=== PATIENT | female | born 1950 | race Caucasian/White ===

== ENCOUNTER 2019-01-19 04:11 | Emergency (ER) | payer MEDICARE ==
[2019-01-19] MEDS ORDERED: cefTRIAXone\\ROCEPHIN 2 GM VIAL ONE (05:15)
[2019-01-19] MEDS ORDERED: Sodium Chloride 0.9% 100 ML ONE (05:15)
[2019-01-19] MEDS ORDERED: Acetaminophen 500 MG TAB ONE (05:26)
[2019-01-19 05:28] LABS: #Lymphocytes 0.5 thou/uL (1.20-3.40); #Monocytes 0.3 thou/uL (0.11-0.59); #Neutrophils 4.9 thou/uL (1.40-6.50); %Basophils 0.7 % (0.0-1.0); %Eosinophils 0.7 % (0.0-10.0); %Lymphocytes 8.2 % (21.0-51.0); %Monocytes 4.9 % (0.0-10.0); %Neutrophils 85.5 % (42.0-75.0); Hemoglobin 14.5 g/dL (12.0-16.0); Mean Corpuscular HGB CONC 33.2 g/dL (32.0-36.0); Mean Corpuscular Hemoglobin 30.4 pg (27.0-31.0); Mean Corpuscular Volume 91.5 fL (78.0-98.0); Platelet Count 170 thou/uL (130-400); Red Blood Cell (RBC) Count 4.79 mill/uL (4.20-5.40); White Blood Cell (WBC) Count 5.7 thou/uL (4.8-10.8)
[2019-01-19] MEDS ORDERED: diphenhydrAMINE 50 MG/ML VIAL ONE (05:50)
[2019-01-19] MEDS ORDERED: methylPREDNISolone Sod Succ/PF 125 MG/2 ML VIAL ONE (05:50)
[2019-01-19 05:52] LABS: ALT (SGPT) 17 U/L (8-55); AST (SGOT) 19 U/L (5-34); Albumin 4.6 g/dL (3.4-4.8); Alkaline Phosphatase 69 U/L (40-150); Anion Gap 14 mmol/L (10-20); BUN (Urea Nitrogen) 11 mg/dL (9.8-20.1); Bilirubin, Total 1.1 mg/dL (0.2-1.2); Calc. Creatinine Clearance 0 mL/min (70-130); Calcium 9.8 mg/dL (7.8-10.44); Carbon Dioxide 26 mmol/L (23-31); Chloride 103 mmol/L (98-107); Estimated GFR-MDRD 66; Glucose 124 mg/dL (80-115); Lipase 28 U/L (8-78); Magnesium 2.1 mg/dL (1.6-2.6); Potassium 3.6 mmol/L (3.5-5.1); Protein, Total 7.6 g/dL (6.0-8.3); Sodium 139 mmol/L (136-145)
[2019-01-19 06:19] LABS: Bilirubin Negative (Negative); Blood, Urine Moderate (Negative); Clarity CLEAR (Clear); Glucose, Urine (Dipstick) Negative (Negative); Leukocyte Negative (Negative); Nitrite Negative (Negative); Protein, Urine (Dipstick) Negative (Neg-Trace); Specific Gravity, Urine 1.004 (1.002-1.036); Urobilinogen 0.2 mg/dL (0.2-1.0); pH, Urine 7.5 (5.0-9.0)
[2019-01-19 06:22] LABS: Bacteria/HPF None Seen HPF (None Seen); Hyaline Casts/LPF 0-3 HYALINE CAST LPF (0-3 Hyaline); Squamous Epithelial None Seen HPF (0-3); WBC/HPF 0-3 HPF (0-3)
--- NOTE | 2019-01-19 06:35 | RAD ---
CHEST ONE VIEW: INDICATIONS: Cough. COMPARISON: 10/04/2016 FINDINGS: Chronic lung changes are stable. Heart size is at the upper limits of normal. No acute osseous abno rmality is noted. IMPRESSION: Stable chronic lung changes. No definite acute abnormality. POS: [facility]
--- NOTE | 2019-01-19 07:50 | CT ---
CT ABDOMEN AND PELVIS WITHOUT IV CONTRAST: INDICATIONS: History of foul-smelling urine and bilateral flank pain with a history of a hysterectomy, a cholecyst ectomy, an ERCP, and an appendectomy. The patient is having one day of fever, cough, and bodyaches. COMPARISON: CT abdomen dated 09/04/2004. FINDINGS: The lung bases are clear. There is fatty infiltration of the liver. The gallbladder is surgically absent. The spleen is at the upper limits of normal, measuring 12.9 cm. There is a small diverticula involvi ng the second stage of the duodenum. The pancreas and adrenal glands are unremarkable. There has been interval development of a 1.8 cm staghorn calculus within the right renal pelvis. No el hydronephrosis is evident. There are at least four separate nonobstructing calculi within the mid to inferior pole of the right kidney. The one seen within the right mid pole measures 3 mm, and the two additional, within the lower pole, measure between 2 and 3 mm. A small, 1 to 2 mm, nonobstru cting calculus within the inferior pole left kidney. There is moderate distention of the bladder. There is no evidence of bowel obstruction. The appendix is surgically absent. No free fluid is evid ent. The uterus is surgically absent. No acute osseous abnormality is evident. There is diffuse osteopenia. IMPRESSION: 1. Interval development of a large right staghorn calculus within the right renal pelvis. There is bilateral nephrolithiasis. No el hydronephrosis is grossly evident. 2. Moderate distention of the bladder is nonspecific. 3. Fatty liver. 4. Hiatal hernia. 5. Other chronic findings as above. POS: [facility]
--- NOTE | 2019-01-19 08:52 | CT ---
CT ANGIOGRAM THORAX WITH IV CONTRAST AND 3D RECONSTRUCTIONS: 01/19/2019 HISTORY: Fever, cough, and bodyaches for one day. Dysuria. COMPARISON: None available. FINDINGS: There is dense contrast within the SVC, which results in artifact through the right upper lobe pulmon natali arteries, but no definitive filling defect is seen within the pulmonary arteries to suggest a pul monary embolus. Vascular calcifications are seen in the region of the aortic arch and involving the coronary arteries . The thoracic aorta is normal in caliber without evidence of an aortic dissection. There is no evidence of lymphadenopathy. A small hiatal hernia is present. There is dependent atelectasis bilaterally and greater at the lung bases. No pulmonary nodule, mass, or pleural effusion is seen. Post cholecystectomy changes are noted. There is partial visualization of a duodenal diverticulum, m edial to the second portion of the duodenum, better seen on noncontrast CT abdomen, also obtained on this date. There are areas of diminished attenuation within the liver, as well as areas of more normal attenuati on. Findings are likely related to geographic areas of fatty infiltration of the liver. IMPRESSION: 1. No CT evidence of a pulmonary embolus. 2. Fatty infiltration of the liver. 3. Post cholecystectomy changes. POS: [facility]
[2019-01-19] MEDS ORDERED: ISOVUE-370 76%-LOCM 1 ML ONE (10:39)
== END 2019-01-19 09:55 | disposition home or self-care (01) ==
LOC: ERS 04:11
DX: J18.9 Pneumonia, unspecified organism (principal); E86.0 Dehydration; K58.9 Irritable bowel syndrome, unspecified; M19.90 Unspecified osteoarthritis, unspecified site; E78.00 Pure hypercholesterolemia, unspecified
CPT/HCPCS: 36415; 71045; 71275; 74176; 80053; 81003; 81015; 83605; 83690; 83735; 85025; 87040; 87086; 87804; 93005; 96361; 96365; 96375; J0696; J1200; J2930; J7050; Q9966

== ENCOUNTER 2019-03-16 00:21 | Outpatient (CLI) | payer MEDICARE ==
[2019-03-16 17:57] LABS: Hemoglobin 13.3 g/dL (12.0-16.0); Mean Corpuscular Hemoglobin 30.6 pg (27.0-31.0); Mean Corpuscular Volume 90.1 fL (78.0-98.0); Mean Platelet Volume 9.6 fL (7.4-10.4); Platelet Count 176 thou/uL (130-400); RBC Distribution Width 12.3 % (11.5-14.5); Red Blood Cell (RBC) Count 4.35 mill/uL (4.20-5.40)
[2019-03-16 18:19] LABS: Anion Gap 12 mmol/L (10-20); BUN (Urea Nitrogen) 16 mg/dL (9.8-20.1); Calc. Creatinine Clearance 0 mL/min (70-130); Calcium 9.6 mg/dL (7.8-10.44); Carbon Dioxide 27 mmol/L (23-31); Chloride 104 mmol/L (98-107); Estimated GFR-MDRD 67; Glucose 92 mg/dL (80-115); Potassium 3.9 mmol/L (3.5-5.1); Sodium 139 mmol/L (136-145)
== END 2019-03-16 00:22 | disposition home or self-care (01) ==
LOC: LABBT 00:21
PROVIDERS: ATTEND Urology
DX: Z01.812 Encounter for preprocedural laboratory examination (principal); N20.0 Calculus of kidney; R31.29 Other microscopic hematuria; R39.15 Urgency of urination; R35.1 Nocturia
CPT/HCPCS: 80048; 81001; 85027; 87086

== ENCOUNTER 2019-03-24 08:52 | Day surgery (SDC) | payer MEDICARE ==
--- NOTE | 2019-03-24 10:31 | RAD ---
XR Abdomen 1 View/KUB History: [Preop cystogram] Comparison: CT abdomen and pelvis January 19, 2019 Findings: Large calculus interpolar right kidney similar to the comparison CT examination measuring o amadeo 2 cm in size. No abnormal calcifications projecting of the left renal shadow. Right upper quadrant surgical clips. Moderate stool burden. Impression: Large interpolar right renal calculus.
[2019-03-24] MEDS ORDERED: Fentanyl 100 MCG/2 ML VIAL ONE ×2 (11:30→11:31)
[2019-03-24] MEDS ORDERED: Ioversol 68 % 50 ML VIAL ONE (11:31)
[2019-03-24] MEDS ORDERED: Furosemide 20 MG/2 ML VIAL ONE (12:35)
[2019-03-24] MEDS ORDERED: Ondansetron PF 4 MG/2 ML Vial ONE (14:49)
[2019-03-24] MEDS ORDERED: Metoclopramide HCl 10 MG/2 ML VIAL ONE (14:49)
[2019-03-24] MEDS ORDERED: PROPOFOL 200 MG/20 ML VIAL ONE (14:49)
[2019-03-24] MEDS ORDERED: Dexamethasone 20 MG/5 ML VIAL ONE (14:49)
[2019-03-24] MEDS ORDERED: diphenhydrAMINE 50 MG/ML VIAL ONE (14:49)
[2019-03-24] MEDS ORDERED: Lidocaine 1% PF 5 ML VIAL ONE (14:49)
--- NOTE | 2019-03-24 21:29 | OP ---
DATE OF PROCEDURE: 03/24/2019 PREOPERATIVE DIAGNOSIS: Right large renal pelvic stone. POSTOPERATIVE DIAGNOSIS: Right large renal pelvic stone. PROCEDURES PERFORMED: Cystoscopy, right retrograde pyelogram, and insertion of right ureteral stent 6 x 28, as well as right extracorporeal shockwave lithotripsy. ANESTHESIA: General with laryngeal mask airway. FINDINGS: Adequate placement of a right stent that coiled around the large renal pelvic, adequate fragmentation of the large renal pelvic stone with persistent fragments remaining. SPECIMENS: None. COMPLICATIONS: None. DRAINS REMAINING: Internal 6 x 28 double-J. BLOOD LOSS: No blood loss. INDICATIONS FOR PROCEDURE: The patient is a 69-year-old female, who is followed in the office for intermittent right-sided pain and ultimately ended up with a large renal pelvic stone that we discussed multiple options for treatment, but I decided to start with the least invasive possible to clear her with this one procedure, but likely require multiple. DESCRIPTION OF PROCEDURE: The patient was brought into the room by Anesthesia, laid on the table in supine position. After receiving general anesthetic, the legs were placed in lithotomy position and perineum was prepped and draped in sterile fashion. Using a 21-Malay cystoscope and 30-degree lens, the urethra was traversed and the bladder was inspected. Retrograde pyelogram was performed; measurements were taken for a 6 x 28 double-J stent. The wire was advanced all the way into the renal pelvis. The Pollack was removed and then the 6 x 28 double-J was placed over the wire with a good coil visualized around the large renal pelvic stone in the renal pelvis and a good coil was visualized in the bladder via cystoscopy. Effuse was noted from it, the scope was broken apart, bladder drained and then removed in its entirety. The patient was returned to supine position. At this time, she was positioned such that the lithotriptor could identify the stone in multiple planes and then a total of 2500 shocks at a maximum power level of 4 /6 to 5/6 at a maximum rate of 60 per minute were then delivered. Good fragmentation was noted and this was started from medial to lateral. Given the large stone burden, there was still obviously stone fragments noted at the end the procedure. The patient tolerated the procedure well, was then awakened and transferred to PACU in stable condition. Job ID: [id number] [facility]
== END 2019-03-24 15:34 | disposition home or self-care (01) ==
LOC: SDC 08:52
PROVIDERS: ATTEND Urology
PROC: BT1DZZZ Fluoroscopy of Right Kidney, Ureter and Bladder (ICD-10-PCS; principal; 2019-03-24)
PROC: 0T768DZ Dilation of Right Ureter with Intraluminal Device, Via Natural or Artificial Opening Endoscopic (ICD-10-PCS; 2019-03-24)
PROC: 0TC68ZZ Extirpation of Matter from Right Ureter, Via Natural or Artificial Opening Endoscopic (ICD-10-PCS; 2019-03-24)
DX: N20.0 Calculus of kidney (principal); E78.5 Hyperlipidemia, unspecified; K21.9 Gastro-esophageal reflux disease without esophagitis; K58.9 Irritable bowel syndrome, unspecified; Z88.1 Allergy status to other antibiotic agents; Z88.8 Allergy status to other drugs, medicaments and biological substances; Z91.011 Allergy to milk products; Z91.041 Radiographic dye allergy status
CPT/HCPCS: 50590; 52332; 74018; C1758; C1769; J0690; J1940; J3010; Q9967

== ENCOUNTER 2019-04-15 10:25 | Outpatient (CLI) | payer MEDICARE ==
--- NOTE | 2019-04-15 12:42 | RAD ---
ABDOMEN ONE VIEW: HISTORY: Calculus of kidney. COMPARISON: 03/24/2019 FINDINGS: Right ureteral stent in place. Multiple right renal calculi fragments are noted. IMPRESSION: Multiple right renal calculi fragments are noted. Continued short-term followup. POS: OFF
== END 2019-04-15 10:26 | disposition home or self-care (01) ==
LOC: RAD 10:25
PROVIDERS: ATTEND Urology
DX: N20.0 Calculus of kidney (principal)
CPT/HCPCS: 74018; 87086

== ENCOUNTER 2019-05-13 15:00 | Outpatient (CLI) | payer MEDICARE ==
[2019-05-13 16:24] LABS: Hemoglobin 13.8 g/dL (12.0-16.0); Mean Corpuscular HGB CONC 33.7 g/dL (32.0-36.0); Mean Corpuscular Hemoglobin 30.3 pg (27.0-31.0); Mean Corpuscular Volume 90.1 fL (78.0-98.0); Mean Platelet Volume 9.6 fL (7.4-10.4); Platelet Count 168 thou/uL (130-400); RBC Distribution Width 12.2 % (11.5-14.5); Red Blood Cell (RBC) Count 4.56 mill/uL (4.20-5.40); White Blood Cell (WBC) Count 5.8 thou/uL (4.8-10.8)
[2019-05-13 16:25] LABS: Bilirubin Negative (Negative); Blood, Urine Small (Negative); Clarity CLEAR (Clear); Glucose, Urine (Dipstick) Negative (Negative); Leukocyte Small (Negative); Nitrite Negative (Negative); Protein, Urine (Dipstick) Negative (Neg-Trace); Specific Gravity, Urine 1.007 (1.002-1.036); Urobilinogen 0.2 mg/dL (0.2-1.0); pH, Urine 6.5 (5.0-9.0)
[2019-05-13 16:27] LABS: Bacteria/HPF None Seen HPF (None Seen); Hyaline Casts/LPF 0-3 HYALINE CAST LPF (0-3 Hyaline); Pathc Cast-AUWi Flag 0.27 (0-2.49); Squamous Epithelial 0-3 HPF (0-3); WBC/HPF 0-3 HPF (0-3)
[2019-05-13 16:30] LABS: INR-International Normal Ratio 1.1; PTT 33.4 SEC (22.9-36.1); Prothrombin Time 13.9 SEC (12.0-14.7)
[2019-05-13 16:43] LABS: Anion Gap 14 mmol/L (10-20); BUN (Urea Nitrogen) 15 mg/dL (9.8-20.1); Calc. Creatinine Clearance 0 mL/min (70-130); Carbon Dioxide 27 mmol/L (23-31); Chloride 103 mmol/L (98-107); Estimated GFR-MDRD 68; Glucose 87 mg/dL (80-115); Sodium 140 mmol/L (136-145)
== END 2019-05-13 15:01 | disposition home or self-care (01) ==
LOC: LABBT 15:00
PROVIDERS: ATTEND Urology
DX: Z01.818 Encounter for other preprocedural examination (principal); N20.0 Calculus of kidney
CPT/HCPCS: 80048; 81001; 85027; 85610; 85730; 87086; 93005; 93010

== ENCOUNTER 2019-05-21 08:48 | Day surgery (SDC) | payer MEDICARE ==
[2019-05-13 15:26] VITALS: BMI 35.6
[2019-05-21] MEDS ORDERED: cefTRIAXone\\ROCEPHIN 1 GM VIAL ONE (12:48)
[2019-05-21] MEDS ORDERED: Sodium Chloride 0.9% 100 ML ONE (12:50)
[2019-05-21] MEDS ORDERED: HYDROmorphone 2 MG/ML VIAL ONE (13:03)
[2019-05-21] MEDS ORDERED: Fentanyl 100 MCG/2 ML VIAL ONE (13:03)
[2019-05-21] MEDS ORDERED: Phenazopyridine HCl 97.5 MG TABLET ONE (15:28)
[2019-05-21] MEDS ORDERED: Promethazine HCl 25 MG/ML VIAL ONE (16:40)
[2019-05-21] MEDS ORDERED: Acetaminophen 500 MG TAB ONE (18:05)
--- NOTE | 2019-05-21 20:59 | OP ---
DATE OF PROCEDURE: 05/21/2019 SERVICE: Urology. PREOPERATIVE DIAGNOSIS: Right renal stone. POSTOPERATIVE DIAGNOSIS: Right renal stone. PROCEDURES PERFORMED: Right ureteroscopy, laser lithotripsy, basket extraction of stones, and replacement of 6 x 26 double-J stent. INDICATION FOR PROCEDURE: Mrs. Wright is a 69-year-old white female, who previously had shockwave lithotripsy with Dr. Dixon. Unfortunately, all of the stone fragments did not break and she has persistent stone. I had recommended ureteroscopy with laser lithotripsy to try and clear out remaining stone with all risks and benefits discussed and she has agreed to proceed forward. DESCRIPTION OF PROCEDURE: After identification of armband and verification of consent, the patient was brought back to the operating room, where she underwent general anesthesia with endotracheal intubation. She was then placed in dorsal lithotomy position and prepped and draped in usual sterile fashion. After appropriate time-out, a lubricated 22-Montserratian rigid cystoscope was introduced per urethra into the bladder and attention turned to the right ureteral orifice which had a stent emanating from it. The stent was grasped with flexible graspers and brought to the level of the urethral meatus. A 0.035 Sensor wire was advanced through the stent up to the level of renal pelvis. The stent was then removed and discarded. A dual-lumen catheter was advanced over the Sensor wire up to the level of the proximal ureter. An Amplatz Super Stiff wire was then placed through the second lumen up to the level of renal pelvis. The dual-lumen was then removed and discarded. The Sensor wire was affixed to the drapes as a safety wire. A 13/15-Montserratian ureteral access sheath was then advanced with ease over the Super Stiff wire up to the level of the proximal ureter. The inner cannula and the Super Stiff wire were then removed leaving the outer sheath and Sensor wire in place as a safety wire. A disposable flexible digital ureteroscope was then brought in through the ureteral access sheath into the renal pelvis. Pyeloscopy demonstrated that there were still stone fragments with very poor fragmentation of the original stone. A 365 micron laser fiber was then used to break up the stone into small fragments and a 1.9-Montserratian ZeroTip Nitinol basket used to bring up all fragments that were over 1-2 mm in size. There was a significant amount of dust debris that was left over. These were too small to grasp with the basket. The 365 micron laser fiber was then used to come back in and pulverize these fragments until they were literally powdered. There was almost no fragments over a millimeter in size upon completion, satisfied that the slurry should pass without any significant problems. The ureteroscope was withdrawn and pull-back ureteroscopy was employed in the ureter and there was one additional stone found within the ureter, which was basketed and removed. Remainder of the pull-back ureteroscopy was negative. A 6 x 26 double-J stent was then advanced over the Sensor wire back into the bladder and under fluoroscopic guidance got into position. The wire was removed leaving a partial curl in the kidney and a good curl in the bladder. Reinspection with the cystoscope back in the bladder showed good positioning of the stent. The bladder was emptied and cystoscope removed. The patient then awakened, taken to PACU for recovery in stable condition. COMPLICATIONS: None. ESTIMATED BLOOD LOSS: Minimal. RETAINED TUBES AND DRAINS: A 6 x 26 double-J stent on the right. SPECIMEN: Stone for stone analysis. DISPOSITION: The patient will be discharged home and follow up with me in approximately 1 week for cysto stent removal. Job ID: [id number]
== END 2019-05-21 19:00 | disposition home or self-care (01) ==
LOC: SDC 08:48
PROVIDERS: ATTEND Urology
PROC: 0TF38ZZ Fragmentation in Right Kidney Pelvis, Via Natural or Artificial Opening Endoscopic (ICD-10-PCS; principal; 2019-05-21)
PROC: 0T768DZ Dilation of Right Ureter with Intraluminal Device, Via Natural or Artificial Opening Endoscopic (ICD-10-PCS; 2019-05-21)
DX: N20.0 Calculus of kidney (principal); E78.5 Hyperlipidemia, unspecified; K21.9 Gastro-esophageal reflux disease without esophagitis; K58.9 Irritable bowel syndrome, unspecified; Z79.899 Other long term (current) drug therapy; Z88.8 Allergy status to other drugs, medicaments and biological substances; Z91.011 Allergy to milk products; Z91.040 Latex allergy status; Z98.890 Other specified postprocedural states
CPT/HCPCS: 76000; 82365; 88300; C1758; C1769; J0696; J1170; J2550; J3010; J3490